=== PATIENT | female | born 1995 | race Caucasian/White ===

== ENCOUNTER 2022-09-22 16:50 | Inpatient (IN) | payer BC ==
[2022-09-22] MEDS ORDERED: Sodium Chloride 0.9% 10 ML Syringe FLUSH PRN (17:59)
[2022-09-22] MEDS ORDERED: Misoprostol 25 MCG (1/4 of 100 MCG) Tab VAG PRN (17:59)
[2022-09-22] MEDS ORDERED: Tranexamic Acid 1,000 MG in Sodium Chloride 0.9% 100 ML IV PRN (17:59)
[2022-09-22] MEDS ORDERED: Water For Irrigation,Sterile 1,000 ML Container IRR PRN (17:59)
[2022-09-22] MEDS ORDERED: Terbutaline 1 MG/ML SDV SUBCUT PRN (17:59)
[2022-09-22] MEDS ORDERED: Carboprost Tromethamine 250 MCG/1 ML Amp IM PRN (17:59)
[2022-09-22] MEDS ORDERED: Methylergonovine 0.2 MG/1 ML Amp IM PRN (17:59)
[2022-09-22] MEDS ORDERED: Sodium Chloride 0.9% 2.5 ML Syringe FLUSH PRN (17:59)
[2022-09-22] MEDS ORDERED: Butorphanol 1 MG/ML SDV IVPUSH PRN (17:59)
[2022-09-22] MEDS ORDERED: Misoprostol 200 MCG Tab PO PRN (17:59)
[2022-09-22] MEDS ORDERED: Sodium Chloride 0.9% 20 ML SDV IV PRN (17:59)
[2022-09-22] MEDS ORDERED: Lidocaine 1% 50 ML MDV INJECT PRN (17:59)
[2022-09-22] MEDS ORDERED: Lactated Ringers 1,000 ML IV SCH (18:00)
[2022-09-22] MEDS ORDERED: Oxytocin/0.9 % Sodium Chloride 30 UNIT/500 ML BAG IV SCH ×2 (18:00)
[2022-09-22] MEDS ORDERED: Labetalol 100 MG/20 ML MDV IVPUSH ONE ×2 (19:02→20:23)
[2022-09-22] MEDS ORDERED: Labetalol 100 MG/20 ML MDV ONE (19:05)
[2022-09-22 19:41] LABS: CARBON DIOXIDE,CO2 23.9 mmol/L (21.0-32.0); POTASSIUM,K 4.2 mmol/L (3.5-5.1)
[2022-09-22] MEDS ORDERED: Labetalol 100 MG/20 ML MDV IVPUSH PRN (20:35)
[2022-09-22] MEDS ORDERED: Magnesium Sulfate/Water 4 GM in Premix Bag 1 BAG IV ONE (20:37)
[2022-09-22] MEDS ORDERED: Calcium Gluconate 10% 1 GM/10 ML SDV IV PRN (20:37)
[2022-09-22] MEDS ORDERED: Labetalol 100 MG Tab PO SCH (21:00)
[2022-09-22] MEDS: Magnesium Sulfate/Water 20 GM/500 ML BAG IV SCH (21:53)
[2022-09-22] MEDS ORDERED: Sodium Chloride 0.9% 1,000 ML IV SCH (22:30)
[2022-09-22] MEDS: Misoprostol 25 MCG (1/4 of 100 MCG) Tab VAG PRN (22:36)
[2022-09-23] MEDS ORDERED: Phenylephrine HCl In 0.9% NaCl 1 MG/10 ML Vial IVPUSH PRN (00:31)
[2022-09-23] MEDS ORDERED: ePHEDrine 50 MG/ML SDV IVPUSH PRN ×3 (00:31→17:19)
[2022-09-23] MEDS ORDERED: Ropivacaine HCl/PF 400 MG in Premix Bag 1 BAG EPIDUR SCH (00:45)
[2022-09-23] MEDS ORDERED: Phenylephrine HCl In 0.9% NaCl 1 MG/10 ML Vial IVPUSH SCH ×2 (00:45→17:30)
[2022-09-23] MEDS: Misoprostol 25 MCG (1/4 of 100 MCG) Tab VAG PRN ×2 (02:37→06:34)
[2022-09-23] MEDS: Magnesium Sulfate/Water 20 GM/500 ML BAG IV SCH ×2 (07:55→19:38)
[2022-09-23] MEDS: Labetalol 100 MG Tab PO SCH ×2 (10:05→22:01)
[2022-09-23] MEDS ORDERED: fentaNYL 100 MCG/2 ML SDV ONE (16:35)
[2022-09-23] MEDS ORDERED: Bupivacaine 0.5% 10 ML SDV ONE (16:35)
[2022-09-23] MEDS ORDERED: Morphine PF 10 MG/10 ML SDV ONE (16:36)
[2022-09-23] MEDS ORDERED: Ropivacaine 0.5% 5 MG/ML 30 ML SDV ONE (16:36)
[2022-09-23] MEDS ORDERED: ceFAZolin 1 GM Vial ONE ×2 (16:36→17:01)
[2022-09-23] MEDS ORDERED: Ondansetron 4 MG/2 ML SDV ONE (16:36)
[2022-09-23] MEDS ORDERED: Dexamethasone 4 MG/ML 5 ML MDV ONE (16:36)
[2022-09-23] MEDS ORDERED: Lidocaine 2% 5 ML SDV ONE (16:36)
[2022-09-23] MEDS ORDERED: Oxytocin 10 Units/1 ML SDV ONE ×2 (16:36→17:07)
[2022-09-23] MEDS ORDERED: Ketorolac 30 MG/ML SDV ONE (16:37)
[2022-09-23] MEDS ORDERED: Acetaminophen/oxyCODONE 325-5 MG Tab PO PRN ×2 (17:19→18:11)
[2022-09-23] MEDS ORDERED: Metoclopramide 10 MG/2 ML SDV IVPUSH PRN (17:19)
[2022-09-23] MEDS ORDERED: Morphine 2 MG/ML SYRINGE IVPUSH PRN (17:19)
[2022-09-23] MEDS ORDERED: fentaNYL 100 MCG/2 ML SDV IVPUSH PRN ×2 (17:19)
[2022-09-23] MEDS ORDERED: Ondansetron 4 MG/2 ML SDV IVPUSH PRN ×3 (17:19→18:11)
[2022-09-23] MEDS ORDERED: Albuterol 0.083% 2.5 MG/3 ML Neb Soln NEB PRN (17:19)
[2022-09-23] MEDS ORDERED: HYDROmorphone 2 MG/ML Syringe IVPUSH PRN (17:19)
[2022-09-23] MEDS ORDERED: diphenhydrAMINE 50 MG/ML SDV IVPUSH PRN ×2 (17:19→18:11)
[2022-09-23] MEDS ORDERED: Naloxone 0.4 MG/ML SDV IVPUSH PRN (17:19)
[2022-09-23] MEDS ORDERED: Tranexamic Acid 1,000 MG in Sodium Chloride 0.9% 100 ML IV PRN (18:11)
[2022-09-23] MEDS ORDERED: Ibuprofen 800 MG Tab PO PRN (18:11)
[2022-09-23] MEDS ORDERED: Bisacodyl 10 MG Supp RECTAL PRN (18:11)
[2022-09-23] MEDS ORDERED: Lanolin 100% Cream 7 GM Tube TOP PRN (18:11)
[2022-09-23] MEDS: Docusate Sodium 100 MG Cap PO SCH (20:38)
[2022-09-23] MEDS ORDERED: Ketorolac 30 MG/ML SDV IVPUSH SCH (22:00)
[2022-09-23] MEDS: Acetaminophen 1,000 MG in Premix Bag 1 BAG IV PRN (23:37)
[2022-09-24] MEDS: Ketorolac 30 MG/ML SDV IVPUSH SCH ×4 (00:09→18:43)
[2022-09-24] MEDS: Magnesium Sulfate/Water 20 GM/500 ML BAG IV SCH ×2 (04:42→14:38)
[2022-09-24] MEDS: Acetaminophen 1,000 MG in Premix Bag 1 BAG IV PRN ×2 (05:44→11:23)
[2022-09-24 08:37] LABS: CARBON DIOXIDE,CO2 19.9 mmol/L (21.0-32.0); POTASSIUM,K 4.5 mmol/L (3.5-5.1)
[2022-09-24] MEDS: Docusate Sodium 100 MG Cap PO SCH ×2 (09:38→20:57)
[2022-09-24] MEDS: Labetalol 100 MG Tab PO SCH ×2 (09:52→21:00)
[2022-09-24] MEDS: Acetaminophen/oxyCODONE 325-5 MG Tab PO PRN (23:22)
[2022-09-25] MEDS: Ketorolac 30 MG/ML SDV IVPUSH SCH
[2022-09-25] MEDS: Acetaminophen/oxyCODONE 325-5 MG Tab PO PRN ×2 (03:52→09:19)
[2022-09-25 08:01] VITALS: BP 143/69; PULSE 71
[2022-09-25] MEDS: Docusate Sodium 100 MG Cap PO SCH (09:19)
== END 2022-09-25 12:49 | disposition home or self-care (01) | DRG 540 ==
LOC: MW.OBCHECK 16:50 → MW.OB 16:50 → MW.OBCHECK 17:59 → OBSVTOIN 09-23 17:07 → MW.OB 09-23 20:58
PROVIDERS: ADMIT Obstetrics & Gynecology; ATTEND Obstetrics & Gynecology
PROC: 10D00Z1 Extraction of Products of Conception, Low, Open Approach (ICD-10-PCS; principal; 2022-09-23)
PROC: 3E0R3BZ Introduction of Anesthetic Agent into Spinal Canal, Percutaneous Approach (ICD-10-PCS; 2022-09-23)
PROC: 00HU33Z Insertion of Infusion Device into Spinal Canal, Percutaneous Approach (ICD-10-PCS; 2022-09-23)
DX: O14.14 Severe pre-eclampsia complicating childbirth (principal); Z3A.39 39 weeks gestation of pregnancy; Z37.0 Single live birth; O76 Abnormality in fetal heart rate and rhythm complicating labor and delivery; O99.214 Obesity complicating childbirth; O69.81X0 Labor and delivery complicated by cord around neck, without compression, not applicable or unspecified; E66.01 Morbid (severe) obesity due to excess calories; Z20.822 Contact with and (suspected) exposure to COVID-19
CPT/HCPCS: 01967; 01968; 36415; 51702; 64488; 80053; 82570; 82803; 83735; 84156; 84550; 85027; 86592; 86850; 86900; 86901; A9270-GY; J0131; J0595; J0690; J1100; J1200; J1885; J2274; J2405; J2590; J2795; J3010; J3475; J3490; J7030; J7120; U0002